=== PATIENT | female | born 2000 | race Caucasian/White ===

== ENCOUNTER 2020-01-12 17:50 | Emergency (ER) | payer BC, OTHER ==
[2020-01-12 18:08] VITALS: BP 132/92; PULSE 77; TEMP 98; BMI 26.0
--- NOTE | 2020-01-12 18:28 | PDOC ---
Attending Attestation - Resident Resident Name: Titi Toth - ED Attending Attestation I have performed the following: I have examined & evaluated the patient, The case was reviewed & discussed with the resident, I agree w/resident's findings & plan, Exceptions are as noted - HPI HPI: 01/12/20 18:38 Bee sting 1 hour ago right antecubital area. Redness and swelling initially, seems to be subsiding. No systemic symptoms including irritation or swelling of the oropharynx, chest tightness or wheezing, shortness of breath, abdominal pain, nausea, vomiting, or diarrhea. Bee stings in the past without anaphylaxis or other systemic reactions. Took Benadryl immediately. 01/12/20 18:39 - Physicial Exam PE: 01/12/20 18:39 Physical exam: Normal vital signs. Afebrile Normal exam except for mild erythema with a suggestion of an insect bite/bee sting just proximal to the right antecubital fossa. No induration. Pulses full. No distal sensory deficits. Motor intact - Medical Decision Making 01/12/20 18:39 Assessment: Mild localized reaction Plan: Continue Benadryl and Pepcid 24 to 48 hours until symptoms subside. Return to ER if the reaction becomes worse or other symptoms develop, especially irritation or swelling to the throat oropharynx tongue or lips, chest tightness or wheezing, abdominal pain or diarrhea. Ambulatory and in no acute distress at discharge with friend to follow-up as directed Discharge - Discharge Information Problems reviewed: Yes Clinical Impression/Diagnosis: Bee sting Qualifiers: Encounter type: initial encounter Injury intent: accidental or unintentional Qualified Code(s): T63.441A - Toxic effect of venom of bees, accidental (unintentional), initial encounter Condition: Fair Disposition: HOME - Follow up/Referral - Patient Discharge Instructions Patient Printed Discharge Instructions: DI for Insect Bites and Stings Additional Instructions: You were seen in the ER for a bee sting. You have evidence of a localized allergic reaction. You should take Zyrtec and Pepcid as directed on the label to counteract the allergic response. Please return to the ER for new, continued, or worsening symptoms, difficulty breathing, throat swelling or any other reason. - Post Discharge Activity
[2020-01-12] MEDS ORDERED: FAMOTIDINE 20 MG TABLET PO ONE (18:32)
[2020-01-12] MEDS ORDERED: FAMOTIDINE 20 MG TABLET ONE (18:37)
--- NOTE | 2020-01-12 18:37 | PDOC ---
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 Complains of pain at the site. Took a benadryl already. Denies SOB, throat swelling, or GI symptoms. PMH: as above Meds: albuterol Allergies: bee stings (localized) ROS GENERAL/CONSTITUTIONAL: No fever or chills. No weakness. HEAD, EYES, EARS, NOSE AND THROAT: No change in vision. No ear pain or discharge. No sore throat. CARDIOVASCULAR: No chest pain or shortness of breath RESPIRATORY: No cough, wheezing, or hemoptysis. GASTROINTESTINAL: No nausea, vomiting, diarrhea or constipation. GENITOURINARY: No dysuria, frequency, or change in urination. MUSCULOSKELETAL: No joint or muscle swelling or pain. No neck or back pain. SKIN: bee sting on right AC, no stinger present. Circumferential erythema NEUROLOGIC: No headache, vertigo, loss of consciousness, or change in strength/sensation. ENDOCRINE: No increased thirst. No abnormal weight change HEMATOLOGIC/LYMPHATIC: No anemia, easy bleeding, or history of blood clots. ALLERGIC/IMMUNOLOGIC: No hives or skin allergy. PE GENERAL: Awake, alert, and fully oriented, in no acute distress HEAD: No signs of trauma, normocephalic, atraumatic EYES: PERRLA, EOMI, sclera anicteric, conjunctiva clear ENT: Auricles normal inspection, hearing grossly normal, nares patent, oropharynx clear without exudates. Moist mucosa NECK: Normal ROM, supple, no lymphadenopathy, JVD, or masses LUNGS: No distress, speaks full sentences, clear to auscultation bilaterally HEART: Regular rate and rhythm, normal S1 and S2, no murmurs, rubs or gallops, peripheral pulses normal and equal bilaterally. ABDOMEN: Soft, nontender, normoactive bowel sounds. No guarding, no rebound. No masses EXTREMITIES : Normal inspection, Normal range of motion, no edema. No clubbing or cyanosis. NEUROLOGICAL: Cranial nerves II through XII grossly intact. 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 No evidence of anaphylaxis, but some evidence of a local allergic reaction. Will give one dose of Pepcid in the ER and DC home on Pepcid and Zyrtec. Past History - Medical History Allergies/Adverse Reactions: Allergies Allergy/AdvReac Type Severity Reaction Status Date / Time No Known Allergies Allergy Verified 01/12/20 17:53 Home Medications: Ambulatory Orders Albuterol Sulfate Inhaler - [Ventolin HFA Inhaler -] 2 inh PO Q4H PRN 02/21/14 Asthma: Yes COPD: No - Reproductive History Is Patient Now?: No - Immunization History Immunization Up to Date: Yes - Psycho-Social/Smoking History Smoking Status: No Smoking History: Never smoked Have you smoked in the past 12 months: No Number of Cigarettes Smoked Daily: 0 Information on smoking cessation initiated: No - Substance Abuse Hx (Audit-C & DAST Scrn) How often the patient has a drink containing alcohol: Never Score: In Men: 4 or > Positive; In Women: 3 or > Positive: 0 Screen Result (Pos requires Nsg. Audit-10AR): Negative In the last yr the pt used illegal drug/Rx for NonMed reason: No Score: Yes response is considered Positive: 0 Screen Result (Positive result requires Nsg. DAST-10): Negative *Physical Exam - Vital Signs Last Vital Signs Temp Pulse Resp BP Pulse Ox 98 F 77 20 132/92 100 01/12/20 17:52 01/12/20 17:52 01/12/20 17:52 01/12/20 17:52 01/12/20 17:52 Discharge - Discharge Information Problems reviewed: Yes Clinical Impression/Diagnosis: Bee sting Qualifiers: Encounter type: initial encounter Injury intent: accidental or unintentional Qualified Code(s): T63.441A - Toxic effect of venom of bees, accidental (unintentional), initial encounter Condition: Fair Disposition: HOME - Admission No - Follow up/Referral - Patient Discharge Instructions Patient Printed Discharge Instructions: DI for Insect Bites and Stings Additional Instructions: You were seen in the ER for a bee sting. You have evidence of a localized allergic reaction. You should take Zyrtec and Pepcid as directed on the label to counteract the allergic response. Please return to the ER for new, continued, or worsening symptoms, difficulty breathing, throat swelling or any other reason. - Post Discharge Activity
== END 2020-01-12 18:39 | disposition home or self-care (01) ==
LOC: FER 17:50
DX: T63.441A Toxic effect of venom of bees, accidental (unintentional), initial encounter (principal)
CPT/HCPCS: 99283-25

== ENCOUNTER 2022-02-12 04:21 | Day surgery (SDC) | payer BC, OTHER ==
[2022-02-11 11:49] VITALS: BMI 25.6
[2022-02-12] MEDS ORDERED: BUPIVACAINE HCL/PF 0.5% (5MG/ML) 10 ML VIAL ONE (07:51)
[2022-02-12] MEDS ORDERED: LIDOCAINE HCL/PF 1% SDV 5ML VIAL ONE (07:51)
[2022-02-12] MEDS ORDERED: TRIAMCINOLONE ACET 40MG/1ML VIAL ONE (07:51)
[2022-02-12] MEDS ORDERED: BUPIVACAINE HCL/PF 0.25% (2.5MG/ML) 10 ML VIAL IJ ONE ×2 (13:32→13:34)
[2022-02-12] MEDS ORDERED: LIDOCAINE HCL 1% PRESERVATIVE FREE - 30ML VIAL IJ ONE (13:32)
[2022-02-12] MEDS ORDERED: TRIAMCINOLONE ACET 40MG/1ML VIAL IM ONE ×2 (13:33→13:35)
[2022-02-12 14:26] VITALS: BP 134/80; PULSE 63; RESP 17; TEMP 97.9
== END 2022-02-12 14:15 | disposition home or self-care (01) ==
LOC: JASU-SURG 04:21
PROVIDERS: ATTEND Pain Medicine Pain Medicine
PROC: 3E0U3BZ Introduction of Anesthetic Agent into Joints, Percutaneous Approach (ICD-10-PCS; 2022-02-12)
PROC: 3E0U33Z Introduction of Anti-inflammatory into Joints, Percutaneous Approach (ICD-10-PCS; principal; 2022-02-12 13:30)
DX: M53.3 Sacrococcygeal disorders, not elsewhere classified (principal)
CPT/HCPCS: 76000-TC-FY; 81025

== ENCOUNTER 2022-03-09 23:48 | Emergency (ER) | payer BC, OTHER ==
[2022-03-10 00:03] VITALS: BP 135/91; PULSE 78; RESP 22; TEMP 98.9; BMI 26.5
[2022-03-10] MEDS ORDERED: ALBUTEROL SO4 2.5/IPRATROPIUM 0.5 INH SOL 3 ML VIAL.NEB. NEB ONE ×2 (01:29→02:15)
[2022-03-10] MEDS ORDERED: ALBUTEROL SO4 2.5/IPRATROPIUM 0.5 INH SOL 3 ML VIAL.NEB. NEB SCH (01:30)
[2022-03-10] MEDS: ALBUTEROL SO4 2.5/IPRATROPIUM 0.5 INH SOL 3 ML VIAL.NEB. NEB SCH ×2 (01:32→02:18)
== END 2022-03-10 03:00 | disposition home or self-care (01) ==
LOC: JER 23:48
PROC: 3E0F7GC Introduction of Other Therapeutic Substance into Respiratory Tract, Via Natural or Artificial Opening (ICD-10-PCS; principal; 2022-03-09)
DX: R06.02 Shortness of breath (principal); R05.1 Acute cough; R09.81 Nasal congestion; J09.X2 Influenza due to identified novel influenza A virus with other respiratory manifestations
CPT/HCPCS: 0241U-QW; 71046-TC-FY; 93005; 93010; 99285-25

== ENCOUNTER 2024-05-20 04:25 | Day surgery (SDC) | payer BC ==
[2024-05-18 17:31] VITALS: BMI 24.6
[2024-05-20] MEDS ORDERED: TRIAMCINOLONE ACET 40MG/1ML VIAL ONE (07:21)
[2024-05-20] MEDS ORDERED: LIDOCAINE HCL/PF 1% SDV 5ML VIAL ONE (07:22)
[2024-05-20] MEDS ORDERED: BUPIVACAINE HCL/PF 0.5% (5MG/ML) 10 ML VIAL ONE (07:22)
[2024-05-20] MEDS ORDERED: ACETAMINOPHEN 500 MG TABLET (FP) PO PRN (09:10)
[2024-05-20] MEDS: LIDOCAINE HCL 1% PRESERVATIVE FREE - 30ML VIAL IJ ONE ×2 (09:30)
[2024-05-20] MEDS: BUPIVACAINE HCL/PF 0.5% (5MG/ML) 10 ML VIAL IJ ONE ×3 (09:31)
[2024-05-20] MEDS: IOHEXOL 180 MG/1 ML ML IJ ONE ×2 (09:33)
[2024-05-20] MEDS: TRIAMCINOLONE ACETONIDE 40 MG/ML 10 ML VIAL IJ ONE ×2 (09:33)
[2024-05-20 12:38] VITALS: BP 109/66; PULSE 65; RESP 18; TEMP 98
== END 2024-05-20 09:50 | disposition home or self-care (01) ==
LOC: JASU-SURG 04:25
PROVIDERS: ATTEND Pain Medicine Pain Medicine
PROC: 3E0U3BZ Introduction of Anesthetic Agent into Joints, Percutaneous Approach (ICD-10-PCS; 2024-05-20)
PROC: 3E0U33Z Introduction of Anti-inflammatory into Joints, Percutaneous Approach (ICD-10-PCS; principal; 2024-05-20 09:30)
DX: M53.3 Sacrococcygeal disorders, not elsewhere classified (principal)
CPT/HCPCS: 76000-TC-FY; 81025